=== PATIENT | female | born 1970 | race Caucasian/White ===

== ENCOUNTER → 2018-10-12 | Outpatient (CLI) | payer BC, OTHER | LOC: RAD 09:55 | DX: R14.0 Abdominal distension (gaseous) (principal) ==

== ENCOUNTER → 2020-09-22 | Outpatient (CLI) | payer BC, OTHER | LOC: LAB 08:28 | PROVIDERS: ATTEND Orthopaedic Surgery Sports Medicine | DX: Z01.812 Encounter for preprocedural laboratory examination (principal); Z20.822 Contact with and (suspected) exposure to COVID-19 ==

== ENCOUNTER 2020-09-27 07:54 | Day surgery (SDC) | payer BC, OTHER ==
[~2020-09-27] VITALS: Ht 162.6 cm; Wt 77.1 kg
[~2020-09-27 07:54] MED LIST: ADVIL200 M3 PO; FISH OIL 1,0001 EAC9 PO; [UNRECOGNIZED DRUG - OTHER] PO
[2020-09-27 09:15] VITALS: BP 122/80
[2020-09-27 12:28] VITALS: BP 122/80
--- NOTE | 2020-09-28 18:10 | O ---
[facility] [employer] [address] OPERATIVE REPORT Name: JOSE L HUGO Room #: DEP [facility] Temi.Blanca.#: [id number] Admission: 09/27/20 Attend Phys: Lei Brown MD Discharge: 09/27/20 Date of : 68 Report #: [id number] THIS REPORT FOR: cc: Tristian Rodriguez MD, Neal A. MD McCabe,Lei Laureano MD ~ DATE OF SERVICE: 09/27/2020 SERVICE: Orthopedics. FACILITY: [facility]. SURGEON: Lei Brown MD HEEL SEAT FLAP STAPLER: [place]. PREOPERATIVE DIAGNOSES: 1. Right knee pain. 2. Right knee loose bodies. 3. Right knee arthritis. POSTOPERATIVE DIAGNOSES: 1. Right knee pain. 2. Right knee loose bodies. 3. Right knee arthritis. 4. Right knee posterior horn medial meniscus tear. PROCEDURES: 1. Right knee arthroscopic loose body removal. 2. Right knee arthroscopic partial medial meniscectomy with chondroplasty and synovectomy. COMPLICATIONS: None. DRAINS: None. SPECIMENS: Loose bodies, which were removed and discarded. FINDINGS: 1. 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 2. Large grade 4 articular cartilage lesion of the central weightbearing portion of the medial femoral condyle. 3. Overall healthy appearing lateral compartment with intact ACL. 4. Large loose bodies x 3. [facility] [place] [place] [address] OPERATIVE REPORT Name: JOSE L HUGO Room #: DEP [facility] M.R.#: [id number] Admission: 09/27/20 Attend Phys: Lei Brown MD Discharge: 09/27/20 Date of : 68 Report #: [id number] 5. Inner rim posterior horn medial meniscus tear requiring partial medial meniscectomy. COMPLICATIONS: None. DRAINS: None. SPECIMENS: As stated above. HISTORY: The patient "Edna" is a 49-year-old female with a history of right knee pain and mechanical symptoms secondary to symptomatic loose bodies. She has osteoarthritis, but is not a candidate for any arthroplasty procedure at this time, as she is still functioning very well but mechanical symptoms were affecting her on a day-to-day basis and she was indicated for surgical treatment. Risks, benefits, alternatives and indications of surgery were discussed with her in detail. Risks include but not limited to pain, bleeding, infection, injury to nerves or blood vessels, persistent pain despite surgical intervention, failure of any procedures, need for further surgery including eventual arthroplasty as well as complications related to anesthesia. Despite the risks, she wished to proceed. PROCEDURE IN DETAIL: After right lower extremity was correctly identified in the preoperative holding area as the operative extremity, the patient was taken to the operating room where general anesthesia was induced without complication. She was padded appropriately. Prophylactic antibiotics were administered at appropriate time. Tourniquet was applied to right leg. Right lower extremity was then prepped and draped in standard sterile fashion. Timeout procedure performed. Standard anterolateral viewing portal was established followed by anteromedial working portal. Diagnostic arthroscopy revealed the above findings. Shaver was used to perform a synovectomy in the suprapatellar space as well as the anterior aspect of the knee. The medial compartment was noted to have the grade 4 articular cartilage lesion of the medial femoral condyle, which was treated with a limited chondroplasty, but overall it was stable appearing lesion and the tibia was healthy in this area. The posterior horn medial meniscus had an inner rim tear, which was treated with partial meniscectomy with a biter followed by the shaver. The ACL was intact. There was noted to be a large loose body in the front of the knee just in front of the ACL. This was grasped and then removed in full. The leg was placed in a [id number] position. The lateral compartment was evaluated and it was found to be healthy without any lateral meniscus tear. I then passed the scope through the knee into the posteromedial aspect of the knee and then established, a posteromedial portal. I switched between the 30 and 70-degree arthroscope in order to have good visualization. There were 2 more large loose bodies in this aspect of the knee, which were removed after the [facility] [address] [place] [address] OPERATIVE REPORT Name: JOSE L HUGO Room #: DEP [facility] MShakir.#: [id number] Admission: 09/27/20 Attend Phys: Lei Brown MD Discharge: 09/27/20 Date of : 68 Report #: [id number] posteromedial portal was established and cannulated. These were removed in total without any fragmentation. I used a shaver to complete synovectomy posteromedially and ensured that there were no further loose bodies present. I then placed both the 30 and the 70-degree scope in the posteromedial cannula to again visualize this aspect of the knee to ensure that all loose bodies had been successfully resected. Synovectomy was completed. The arthroscopic effusion was drained, instruments were removed. Portal sites were closed. Sterile dressing was applied. The patient was awakened from anesthesia and taken to recovery room in stable condition. No complications. All counts recorded as correct. <ELECTRONICALLY SIGNED> By: Lei Brown MD 09/28/20 1810 [id number] Lei Brown MD /nt
== END 2020-09-27 13:15 | disposition home or self-care (01) ==
LOC: TBA 07:54 → OR 07:54
PROVIDERS: ATTEND Orthopaedic Surgery Sports Medicine
DX: M25.561 Pain in right knee (principal); M17.11 Unilateral primary osteoarthritis, right knee; M23.41 Loose body in knee, right knee; M23.221 Derangement of posterior horn of medial meniscus due to old tear or injury, right knee; M94.261 Chondromalacia, right knee; Z98.890 Other specified postprocedural states; Z20.822 Contact with and (suspected) exposure to COVID-19; Z91.040 Latex allergy status
CPT/HCPCS: 50010; 50101; 50405; 51847; 56527; 57103; 57180; 58589; 62110; 62900; 70005